=== PATIENT | female | born 1955 | race Caucasian/White ===

== ENCOUNTER → 2017-09-21 13:14 | Outpatient (CLI) | payer BC, SELFPAY ==
--- NOTE | 2017-09-21 13:17 | EKG12_ITS ---
Test Reason : PREOP Blood Pressure : / mmHG Vent. Rate : 059 BPM Atrial Rate : 059 BPM P-R Int : 138 ms QRS Dur : 080 ms QT Int : 444 ms P-R-T Axes : 071 023 037 degrees QTc Int : 439 ms Sinus bradycardia with sinus arrhythmia Otherwise normal ECG Low voltage QRS (limb leads) Confirmed by CARINE IYER, MAGGIE ([id number]), editor farm journal ELI PERKINS ([id number]) on 09/24/2017 2:47:01 PM Referred By: GREGORIO Confirmed By:MAGGIE HAWK MD
== END ==
PROVIDERS: Family Provider Family Medicine; PCP Family Medicine; Visit Provider Orthopaedic Surgery
DX: Z01.810 Encounter for preprocedural cardiovascular examination (principal)
CPT/HCPCS: 93005

== ENCOUNTER → 2018-06-21 09:40 | Outpatient (CLI) | payer OTHER, BC, SELFPAY ==
--- NOTE | 2018-06-21 09:57 | EKG12_ITS ---
Test Reason : PRE OP Blood Pressure : / mmHG Vent. Rate : 064 BPM Atrial Rate : 064 BPM P-R Int : 138 ms QRS Dur : 088 ms QT Int : 418 ms P-R-T Axes : 079 033 067 degrees QTc Int : 431 ms Normal sinus rhythm Right atrial enlargement Borderline ECG Confirmed by JOLENE IYER, MILLA ([id number]), photographic editor DM ROWE ([id number]) on 06/24/2018 9:32:04 AM Referred By: Rasheed Benjamin Confirmed By:MILLA FERNÁNDEZ MD
[2018-06-21 10:43] LABS: Hematocrit 41.9 % (37-47); Hemoglobin 13.9 g/dl (12.0-15.0); Mean Corp Hgb Conc 33.2 g/gl (32-36); Mean Corpuscular Hgb 29.6 pg (27.0-32.0); Mean Corpuscular Volume 89.1 fL (81-99); Platelet Count 207 K/mm3 (150-450); RBC Distribution Width CV 13.8 % (11.6-14.6); RBC Distribution Width SD 44.7 fl (35.1-43.9); Scan Indicated on CBC? Y/N NO
[2018-06-21 11:18] LABS: BUN 25 mg/dL (7-18); Creatinine, Serum 0.86 mg/dL (0.55-1.02); EST Glomerular Filtration Rate 71 mL/min (>60); Glucose 83 mg/dL (74-106)
[2018-06-21 11:19] LABS: Anion Gap 6 (5-15); BUN/Creat Ratio 29.2 RATIO (10-20); Calcium,Total 8.5 mg/dL (8.5-10.1); Chloride 110 mmol/L (98-107); Est Glom Filt Rate - Afr Amer 86 mL/min (>60); Potassium 4.2 mmol/L (3.5-5.1); Sodium Level 142 mmol/L (136-145)
--- OUTSIDE RECORDS SUMMARY | 2018-08-25 17:14 | XMS RPT_ITS ---
:1955 Author Organization OHIP Care Team Providers Name Role Phone Rasheed Benjamin Attending Unavailable Rasheed Benjamin Referring Unavailable COLEEN CAO Primary Care Unavailable Shade Perkins Attending Unavailable COLEEN CAO Primary Care Unavailable Ryan Hawk Attending Unavailable Shade Perkins Referring Unavailable PROBLEMS PROBLEMS DATE TYPE CONDITION / CODE ATTENDING STATUS SOURCE 06/21/2018 Unknown Z01.818 - Encounter Rasheed Benjamin for other [facility] preprocedural Hospital examination / Repository Z01.818(ICD-10) 06/21/2018 Unknown Z01.810 - Encounter Rasheed Benjamin for preprocedural [facility] cardiovascular Hospital examination / Repository Z01.810(ICD-10) 10/24/2017 Unknown R00.1 - Bradycardia, Ryan Hawk unspecified / Community R00.1(ICD-10) Hospital Repository PROCEDURES PROCEDURES No Procedure Records FoundRESULTS RESULTS 12 LEAD ELECTROCARDIOGRAM Observed: 06/24/2018 Status: F Source: [place] 9:32 AM [facility] H[facility]PITAL REPOSITORY [facility] Cardiovascular Services [address] [place] [address] 12 Lead EKG 06/21/18 1004 MR#: [id number] Acct: [id number] Name: PALMA DELGADO Rep #: [id number] : 1955 63 From: Beny Cruz MD Attending Dr: Rasheed Turner Status: REG CLI Ordering Dr: Rasheed Benjamin PA-C Date: 06/21/18 Location: LAB Sex: F C Admitted: Test Reason : PRE OP Blood Pressure : / mmHG Vent. Rate : 064 BPM Atrial Rate : 064 BPM P-R Int : 138 ms QRS Dur : 088 ms QT Int : 418 ms P-R-T Axes : 079 033 067 degrees QTc Int : 431 ms Normal sinus rhythm Right atrial enlargement Borderline ECG Confirmed by JOLENE IYER, BENY ([id number]), magazine editor DM ROWE ([id number]) on 06/24/2018 9:32:04 AM Referred By: Rasheed Benjamin Confirmed By:BENY CRUZ MD 06/24/18 0932 Date Beny Cruz MD CC: Coleen Cao MD; Rasheed ORTEGA Signed CBC-COMPLETE BLOOD CNT Collected: 06/21/2018 Status: F Source: [place] NO DIFF 9:47 AM [facility] REPOSITORY TYPE CODE TESTS RESULT OUT OF RANGE REFERENCE UNITS LAB L100.1000 4.4-11.0 K/mm3 Normal WBC 6.0 LAB L100.1200 4.2-5.4 M/mm3 Normal RBC 4.70 LAB L100.1300 12.0-15.0 g/dl Normal HGB 13.9 LAB L100.1400 37-47 % Normal HCT 41.9 LAB L100.1500 81-99 fL Normal MCV 89.1 LAB L100.1600 27.0-32.0 pg Normal MCH 29.6 LAB L100.1700 32-36 g/gl Normal MCHC 33.2 LAB L100.1810 11.6-14.6 % Normal RDW CV 13.8 LAB L100.1820 35.1-43.9 fl High RDW SD 44.7 LAB L100.1900 150-450 K/mm3 Normal PLT 207 LAB L100.2000 6.2-12.0 fl Normal MPV 11.0 Performed By: #### L100.0500 #### [facility] [address] [place], [address] BASIC METABOLIC Collected: 06/21/2018 Status: F Source: [place] PROFILE (BMP) 9:47 AM [facility] REPOSITORY TYPE CODE TESTS RESULT OUT OF RANGE REFERENCE UNITS LAB L501.0100 74-106 mg/dL Normal GLU 83 Result Comment: Please note revised GLUCOSE reference range effective 2017. LAB L501.1000 7-18 mg/dL High BUN 25 LAB L501.1100 0.55-1.02 mg/dL Normal CREAT,SERUM 0.86 Result Comment: The validity of the calculated GFR AND GFRAA in patients over 70 years has not been determined. Clinical correlation is essential. LAB L501.1110 >60 mL/min Normal EST GFR 71 Result Comment: Non- GFR Calc LAB L501.1115 >60 mL/min Normal EST GFR - AA 86 Result Comment: GFR Calc LAB L501.1300 10-20 RATIO High BUN/CRE 29.2 LAB L501.2200 8.5-10.1 mg/dL CA Normal 8.5 LAB L501.5300 136-145 mmol/L NA Normal 142 LAB L501.5600 3.5-5.1 mmol/L K Normal 4.2 LAB L501.5900 98-107 mmol/L High CL 110 LAB L501.6100 21.0-32.0 mmol/L Normal CO2 26.0 LAB L501.6200 5-15 Normal GAP 6 Performed By: #### L500.2500 #### [facility] [address] [place], [address] 12 LEAD ELECTROCARDIOGRAM Observed: 09/24/2017 Status: F Source: [place] 2:47 PM [facility] REPOSITORY [facility] Cardiovascular Services [address] [place] [address] 12 Lead EKG 09/21/17 1321 MR#: [id number] Acct: [id number] Name: PALMA DELGADO Rep #: [id number] : 1955 62 From: Ryan Hawk MD Attending Dr: Shade Perkins MD Status: REG CLI Ordering Dr: Shade Perkins MD Date: 09/21/17 Location: [facility] Sex: F C Admitted: Test Reason : PREOP Blood Pressure : / mmHG Vent. Rate : 059 BPM Atrial Rate : 059 BPM P-R Int : 138 ms QRS Dur : 080 ms QT Int : 444 ms P-R-T Axes : 071 023 037 degrees QTc Int : 439 ms Sinus bradycardia with sinus arrhythmia Otherwise normal ECG Low voltage QRS (limb leads) Confirmed by CARINE IYER, RYAN ([id number]), magazine editor ELI PERKINS ([id number]) on 09/24/2017 2:47:01 PM Referred By: GREGORIO Confirmed By:RYAN HAWK MD 09/24/17 1447 Date Ryan Hawk MD CC: Coleen Cao MD; Shade Perkins MD Signed ALLERGIES ALLERGIES DATE TYPE / CODE NAME / CODE REACTION SEVERITY SOURCE 09/29/2015 Drug No Known Unknown [place] [facility] Allergy/4160 Allergies/F00 [facility] [address]25(SNOMED 7842765(RXNOR Repository CT) M) ENCOUNTERS ENCOUNTERS ADMIT/DISCHARGE ACCOUNT ADMITTING ENCOUNTER LOCATION SOURCE NUMBER CLASS 06/21/2018 [id number] Ambulatory [place] [facility] 3 [facility] ing:LAB Repository 09/21/2017 [id number] Amb[place] [facility] ing:[facility] Repository 09/21/2017 [id number] Ambulatory BMSBuilding:W [place] 8 [facility] Repository PAYERS PAYERS ENCOUNTER GUARANTOR PAYER SUBSCRIBER SOURCE 06/21/2018 PALMA Lance Primary PALMA DELGADO98 Insurance:SELF INS CRAWFORDDOB: Community RUSTIC LNAPPLE [facility] [employer]Policy [id number] Number: Repository [address]Dgz: [phone] [id number] [phone] (HP) Date:[id number] MANAGEMENT [place] [address], [place] [address]GW: 06/21/2018 Secondary PALMA Lance [place] Insurance:ANTHEMPolic CRAWFORDDOB: Community y Number: [id number]. [id number] Repository ve Date:[id number] [address], [place] [address]ZP: 06/21/2018 Tertiary NOT GIVENUNK [place] Insurance:SELF PAY [facility] Number: Effective Repository Date:2018-06-21 09/21/2017 PALMA Lance Primary PALMA Lance [place] [id number] Insurance:ANTHEMPolic CRAWFORDDOB: Community RUSTIC LNAPPLE y [place]: [id number] [id number] Repository [address]Dkc: ve Date:[id number] [phone] () [address]XL: 09/21/2017 Secondary NOT GIVENUNK [place] Insurance:SELF PAY [facility] Number: Effective Repository Date:2017-09-21 09/21/2017 PALMA Lance Primary PALMA Lance [place] [id number] Insurance:ANTHEMPolic CRAWFORDDOB: Community RUSTIC LNAPPLE y Number: [id number] [id number] Repository [address]Mzk: ve Date:3523-89-05NW [phone] [address], [place] 5 () [address]XD: 09/21/2017 Secondary NOT GIVENUNK [place] Insurance:SELF PAY [facility] Number: Effective Repository Date:2017-09-21
== END ==
PROVIDERS: Family Provider Family Medicine; PCP Family Medicine; Referring Provider Physician Assistant; Visit Provider Physician Assistant
DX: Z01.818 Encounter for other preprocedural examination (principal); Z01.810 Encounter for preprocedural cardiovascular examination
CPT/HCPCS: 36415; 80048; 85027; 93005

== ENCOUNTER 2025-03-02 19:36 | Emergency (ER) | payer MEDICARE, SELFPAY ==
--- OUTSIDE RECORDS SUMMARY | 2025-01-20 07:05 | XMS RPT_ITS ---
Author Name Auto Generated Organization [facility] Care Team Providers Care Payroll Technician Name Role Phone SLOANE BIOMETRIC SCREENER-REACH LIFT TRUCK DRIVER, ЕЛЕНА A Attending Un available SLOANE BIOMETRIC SCREENER-REACH LIFT TRUCK DRIVER, ЕЛЕНА A Primary Care Un available SLOANE BIOMETRIC SCREENER-REACH LIFT TRUCK DRIVER, ЕЛЕНА A Attending Un available SLOANE BIOMETRIC SCREENER-REACH LIFT TRUCK DRIVER, ЕЛЕНА A Primary Care Un available SLOANE BIOMETRIC SCREENER-REACH LIFT TRUCK DRIVER, ЕЛЕНА A Attending Un available SLOANE BIOMETRIC SCREENER-REACH LIFT TRUCK DRIVER, ЕЛЕНА A Primary Care Un available SLOANE BIOMETRIC SCREENER-REACH LIFT TRUCK DRIVER, ЕЛЕНА A Attending Un available SLOANE BIOMETRIC SCREENER-REACH LIFT TRUCK DRIVER, ЕЛЕНА A Primary Care Un available SLOANE BIOMETRIC SCREENER-REACH LIFT TRUCK DRIVER, ЕЛЕНА A Attending Un available SLOANE BIOMETRIC SCREENER-REACH LIFT TRUCK DRIVER, ЕЛЕНА A Primary Care Un available PROBLEMS No Problem Records Found PROCEDURES No Procedure Records Found RESULTS CBC Collected: 5 7:12 AM Status: F Source: [facility] TYPE CODE TESTS RESULT OUT OF RANGE REFERENCE UNITS LAB WBC(LOINC) WBC 4.5 4.5-10.8 10 3/mcL LAB RBCCT(LOINC) RBC 4.56 4.10-5.30 10 6/mcL LAB HGB(LOINC) Hgb 13.5 12.0-16.0 G/dL LAB HCT(LOINC) Hct 40.0 34.0-46.0 % LAB MCV(LOINC) MCV 87.7 80.0-99.0 fL LAB MCH(LOINC) MCH 29.5 27.0-33.0 pg LAB MCHC(LOINC) MCHC 33.7 32.0-36.0 G/dL LAB RDW(LOINC) RDW 13.8 11.5-15.5 % LAB PLT(LOINC) Platelet 172 150-450 10 3/mcL LAB MPV(LOINC) MPV 9.2 6.6-10.5 fL Performed By: #### TSH, GFR, LIPID, ADIFF, FT4, CBC, CMP, ANEU #### [address] [address] .AUTO DIFF Collected: 01/20/2025 7:12 AM Status: F Source: [facility] TYPE CODE TESTS RESULT OUT OF RANGE REFERENCE UNITS LAB CHRIST(LOINC) Neutrophil % 59.3 50.0-75.0 % LAB LYM(LOINC) Lymphocyte % 31.4 20.0-40.0 % LAB MON(LOINC) Monocyte % 6.3 2.0-13.0 % LAB EO(LOINC) Eosinophil % 2.4 0.0-6.0 % LAB BAS(LOINC) Basophil % 0.6 0.0-2.5 % LAB ABLYM(LOINC) Lymphocyte, Absolute 1.4 0.9-4.3 10 3/mcL LAB FIDEL(LOINC) Monocyte, Absolute 0.3 0.1-1.4 10 3/mcL LAB AEOS(LOINC) Eosinophil, Absolute 0.1 0.0-0.7 10 3/mcL LAB ABAS(LOINC) Basophil, Absolute 0.0 0.0-0.3 10 3/mcL Performed By: #### TSH, GFR, LIPID, ADIFF, FT4, CBC, CMP, ANEU #### [address] [address] .NEUABS Collected: 7:12 AM Status: F Source: [facility] TYPE CODE TESTS RESULT OUT OF RANGE REFERENCE UNITS LAB ANEU(LOINC) Neutrophil, Absolute 2.7 2.3-8.1 10 3/mcL Performed By: #### TSH, GFR, LIPID, ADIFF, FT4, CBC, CMP, ANEU #### [address] [address] TSH Collected: 7:12 AM Status: F Source: [facility] TESTS RESULT OUT OF RANGE REFERENCE UNITS LAB TSH(LOINC) TSH 0.07 Low 0.36-3.74 mcIU/mL Performed By: #### TSH, GFR, LIPID, ADIFF, FT4, CBC, CMP, ANEU #### [address] [address] FT4 Collected: 7:12 AM Status: F Source: [facility] TYPE CODE TESTS RESULT OUT OF RANGE REFERENCE UNITS LAB FT4(LOINC) Free T4 0.93 0.76-1.46 ng/dL Performed By: #### TSH, GFR, LIPID, ADIFF, FT4, CBC, CMP, ANEU #### [address] [address] CMP Collected: 01/20/2025 7:12 AM Status: F Source: [facility] TYPE CODE TESTS RESULT OUT OF RANGE REFERENCE UNITS LAB GLU(LOINC) Glucose Level 98 80-115 mg/dL LAB NA(LOINC) Sodium Level 140 136-145 mmol/L LAB K(LOINC) Potassium Level 4.1 3.5-5.1 mmol/L LAB CL(LOINC) Chloride 107 98-107 mmol/L LAB CO2(LOINC) CO2 28 23-31 mmol/L LAB EBAL(LOINC) Electrolyte Balance 5.0 4.0-15.0 mEq/L LAB BUN(LOINC) BUN 21 High 7-18 mg/dL LAB CRE(LOINC) Creatinine Lvl (s) 0.92 0.51-0.95 mg/dL LAB BC(LOINC) BUN/Creatinine Ratio 23 7-27 ratio LAB CA(LOINC) Calcium Lvl 9.0 8.4-10.2 mg/dL LAB PROT(LOINC) Total Protein 6.5 6.4-8.2 G/dL LAB ALB(LOINC) Albumin Level 3.4 3.4-4.8 G/dL LAB GLB(LOINC) Globulin 3.1 2.7-4.4 G/dL LAB AG(LOINC) A/G Ratio 1.1 1.1-2.5 ratio LAB BILT(LOINC) Bili Total 0.4 0.2-1.0 mg/dL Result Comment: Use of this assay is not recommended for patients undergoing treatment with eltrombopag due to the potential for falsely elevated results. LAB AP(LOINC) Alk Phos 69 40-135 U/L LAB AST(LOINC) AST/SGOT 19 10-40 U/L LAB ALT(LOINC) ALT/SGPT 19 14-59 U/L Performed By: #### TSH, GFR, LIPID, ADIFF, FT4, CBC, CMP, ANEU #### [address] [address] .GFR Collected: 01/20/2025 7:12 AM Status: F Source: [facility] TYPE CODE TESTS RESULT OUT OF RANGE REFERENCE UNITS LAB eGFR(LOINC) Estimated Glomerular Filtration Rate 67 ml/min/1. 73sqm Result Comment: Stages of Chronic Kidney Disease (CKD) Stage Description eGFR(ml/min/1.73 sq.m.) CKD 1 Normal kidney function or >=90 normal kindney function with possible kidney damage (ex. Proteinuria) CKD 2 Kidney damage with mild loss 60-89 of kidney function CKD 3a Mild to moderate loss of kidney 45-59 function CKD 3b Moderate to severe loss of 30-44 of kindey function CKD 4 Severe loss of kidney function 15-29 CKD 5 Kidney failure <15 Note: (go live 2024) the eGFR calculation was updated to the 2020 CKD-EPI creatinine equation without a race factor to calculate the eGFR results. Performed By: #### TSH, GFR, LIPID, ADIFF, FT4, CBC, CMP, ANEU #### [facility] [place] [address] [place], [place] [address] LIPID Collected: 01/20/2025 7:12 AM Status: F Source: [facility] TYPE CODE TESTS RESULT OUT OF RANGE REFERENCE UNITS LAB CHOL(LOINC) Cholesterol 226 High 0-200 mg/dL Result Comment: Cholesterol Reference Interval: Less than 200 Desirable 200-239 Borderline high risk 240 and above High risk LAB TRIG(LOINC) Triglycerides 53 0-150 mg/dL Result Comment: Triglyceride Reference Interval: Less than 150 Normal 150-199 Borderline high risk 200-499 High risk 500 or higher Very high risk LAB HD(LOINC) HDL Cholesterol 71 High 40-60 mg/dL LAB LDL(LOINC) LDL Cholesterol 144 High 0-130 mg/dL Performed By: #### TSH, GFR, LIPID, ADIFF, FT4, CBC, CMP, ANEU #### [address] [address] TSH Collected: 7:32 AM Status: F Source: [facility] TESTS RESULT OUT OF RANGE REFERENCE UNITS LAB TSH(LOINC) TSH 0.18 Low 0.36-3.74 mcIU/mL Performed By: #### FT4, TSH #### [address] [address] FT4 Collected: 7:32 AM Status: F Source: [facility] TESTS RESULT OUT OF RANGE REFERENCE UNITS LAB FT4(LOINC) Free T4 0.81 0.76-1.46 ng/dL Performed By: #### FT4, TSH #### [address] [address] TSH Collected: 10:43 AM Status: F Source: [facility] TESTS RESULT OUT OF RANGE REFERENCE UNITS LAB TSH(LOINC) TSH 0.29 Low 0.36-3.74 mcIU/mL Performed By: #### TSH, FT4 #### [address] [address] FT4 Collected: 10:43 AM Status: F Source: [facility] TYPE CODE TESTS RESULT OUT OF RANGE REFERENCE UNITS LAB FT4(LOINC) Free T4 0.81 0.76-1.46 ng/dL Performed By: #### TSH, FT4 #### [address] [address] CBC Collected: 2:06 PM Status: F Source: [facility] TYPE CODE TESTS RESULT OUT OF RANGE REFERENCE UNITS LAB WBC(LOINC) WBC 5.4 4.5-10.8 10 3/mcL LAB RBCCT(LOINC) RBC 4.65 4.10-5.30 10 6/mcL LAB HGB(LOINC) Hgb 13.7 12.0-16.0 G/dL LAB HCT(LOINC) Hct 41.3 34.0-46.0 % LAB MCV(LOINC) MCV 88.7 80.0-99.0 fL LAB MCH(LOINC) MCH 29.5 27.0-33.0 pg LAB MCHC(LOINC) MCHC 33.2 32.0-36.0 G/dL LAB RDW(LOINC) RDW 14.0 11.5-15.5 % LAB PLT(LOINC) Platelet 189 150-450 10 3/mcL LAB MPV(LOINC) MPV 9.0 6.6-10.5 fL Performed By: #### ANEU, EDNA FF, CBC, CMP, LIPID, GFR #### [address] [address] .AUTO DIFF Collected: 03/25/2024 2:06 PM Status: F Source: [facility] TYPE CODE TESTS RESULT OUT OF RANGE REFERENCE UNITS LAB CHRIST(LOINC) Neutrophil % 63.7 50.0-75.0 % LAB LYM(LOINC) Lymphocyte % 29.4 20.0-40.0 % LAB MON(LOINC) Monocyte % 5.2 2.0-13.0 % LAB EO(LOINC) Eosinophil % 1.3 0.0-7.0 % LAB BAS(LOINC) Basophil % 0.4 0.0-2.5 % LAB ABLYM(LOINC) Lymphocyte, Absolute 1.6 0.9-4.3 10 3/mcL LAB FIDEL(LOINC) Monocyte, Absolute 0.3 0.1-1.4 10 3/mcL LAB AEOS(LOINC) Eosinophil, Absolute 0.1 0.0-0.7 10 3/mcL LAB ABAS(LOINC) Basophil, Absolute 0.0 0.0-0.2 10 3/mcL Performed By: #### ANEU, EDNA FF, CBC, CMP, LIPID, GFR #### [place] [id number] [place], [place] [address] .NEUABS Collected: 2:06 PM Status: F Source: [facility] TYPE CODE TESTS RESULT OUT OF RANGE REFERENCE UNITS LAB ANEU(LOINC) Neutrophil, Absolute 3.4 2.3-8.1 10 3/mcL Performed By: #### ANEU, EDNA FF, CBC, CMP, LIPID, GFR #### [place] [id number] [place], [place] [address] CMP Collected: 03/25/2024 2:06 PM Status: F Source: [facility] TYPE CODE TESTS RESULT OUT OF RANGE REFERENCE UNITS LAB GLU(LOINC) Glucose Level 86 80-115 mg/dL LAB NA(LOINC) Sodium Level 144 136-145 mmol/L LAB K(LOINC) Potassium Level 4.6 3.5-5.1 mmol/L LAB CL(LOINC) Chloride 107 98-107 mmol/L LAB CO2(LOINC) CO2 29 23-31 mmol/L LAB EBAL(LOINC) Electrolyte Balance 8.0 4.0-15.0 mEq/L LAB BUN(LOINC) BUN 20 High 7-18 mg/dL LAB CRE(LOINC) Creatinine Lvl (s) 0.98 0.55-1.02 mg/dL Result Comment: Testing perf ormed on Siemens Dimension EXL analyzer using a modified kinetic Ivon technique. LAB BC(LOINC) BUN/Creatinine Ratio 20 7-27 ratio LAB CA(LOINC) Calcium Lvl 8.9 8.4-10.2 mg/dL LAB PROT(LOINC) Total Protein 6.2 Low 6.4-8.2 G/dL LAB ALB(LOINC) Albumin Level 3.7 3.4-4.8 G/dL LAB GLB(LOINC) Globulin 2.5 G/dL LAB AG(LOINC) A/G Ratio 1.5 1.1-2.5 ratio LAB BILT(LOINC) Bili Total 0.3 0.2-1.0 mg/dL Result Comment: Use of this assay is not recommended for patients undergoing treatment with eltrombopag due to the potential for falsely elevated results. LAB AP(LOINC) Alk Phos 70 40-135 U/L LAB AST(LOINC) AST/SGOT 18 10-40 U/L LAB ALT(LOINC) ALT/SGPT 24 14-59 U/L Performed By: #### ANEU, EDNA FF, CBC, CMP, LIPID, GFR #### [address] [address] .GFR Collected: 4 2:06 PM Status: F Source: [facility] TYPE CODE TESTS RESULT OUT OF RANGE REFERENCE UNITS LAB GFRAA(LOINC) GFR 68 ml/min/1. 73sqm Result Comment: GFR Population mean for , Non- Americans Ages 20-29 = 116 mL/min/1.73 sq.m. Ages 30-39 = 107 mL/min/1.73 sq.m. Ages 40-49 = 99 mL/min/1.73 sq.m. Ages 50-59 = 93 mL/min/1.73 sq.m. Ages 60-69 = 85 mL/min/1.73 sq.m. Ages 70+ = 75 mL/min/1.73 sq.m. Chronic Kidney Disease: Less than 60 mL/min/1.73 square meters End Stage Renal Disease: Less than 15 mL/min/1.73 square meters LAB GFRNO(LOINC) GFR Non- 56 ml/min/1. 73sqm Result Comment: GFR Population mean for , Non- Americans Ages 20-29 = 116 mL/min/1.73 sq.m. Ages 30-39 = 107 mL/min/1.73 sq.m. Ages 40-49 = 99 mL/min/1.73 sq.m. Ages 50-59 = 93 mL/min/1.73 sq.m. Ages 60-69 = 85 mL/min/1.73 sq.m. Ages 70+ = 75 mL/min/1.73 sq.m. Chronic Kidney Disease: Less than 60 mL/min/1.73 square meters End Stage Renal Disease: Less than 15 mL/min/1.73 square meters Performed By: #### ANEU, ENDA FF, CBC, CMP, LIPID, GFR #### [address] [address] LIPID Collected: 03/25/2024 2:06 PM Status: F Source: [facility] TYPE CODE TESTS RESULT OUT OF RANGE REFERENCE UNITS LAB CHOL(LOINC) Cholesterol 266 High 0-200 mg/dL Result Comment: Cholesterol Reference Interval: Less than 200 Desirable 200-239 Borderline high risk 240 and above High risk LAB TRIG(LOINC) Triglycerides 94 0-150 mg/dL Result Comment: Triglyceride Reference Interval: Less than 150 Normal 150-199 Borderline high risk 200-499 High risk 500 or higher Very high risk LAB HD(LOINC) HDL Cholesterol 67 High 40-60 mg/dL LAB LDL(LOINC) LDL Cholesterol 180 High 0-130 mg/dL Performed By: #### ANEU, EDNA FF, CBC, CMP, LIPID, GFR #### [address] [address] [place] MAMMOGRAM SCREENING BILATERAL W/RAFA Observed: 03/13/2024 7:30 AM Status: F Source: [facility] ORIGINAL FROM: [place] [address] PROCEDURE FOR: PALMA DELGADO [address] [place] [id number] Home: PID#: [id number] Exam#: [id number] : 1955 Age: 69 TO: ЕЛЕНА ANTON APRN [place] [address] Fax: NO FAX EXAMINATION: SCREENING DIGITAL BILATERAL MAMMOGRAM WITH TOMOSYNTHESIS, 03/13/2024 7:14 am TECHNIQUE: Screening mammography of the bilateral breasts was performed with tomosynthesis. 2D standard and 3D tomosynthesis combination imaging performed through both breasts in the MLO and CC projection. Computer aided detection was utilized in the interpretation of this exam. COMPARISON: 03/12/2023, 03/14/2022 HISTORY: Breast cancer screening. FINDINGS: BREAST DENSITY: There are scattered areas of fibroglandular density. There are benign appearing calcifications in both breasts. There are benign appearing scattered densities in both breasts. There are no significant masses or calcifications. IMPRESSION: No mammographic evidence of malignancy. Continued screening with annual mammograms is recommended. [facility] risk calculations, generated with the history provided, report this patient's 10 year risk and lifetime risk for developing breast cancer at 2.6% and 4.7%, respectively. Based on this assessment tool, if the patient's calculated lifetime risk is below 20%, then the patient is considered at average risk for developing breast cancer. If the patient's calculated lifetime risk is at or above 20%, then the patient is considered high risk for developing breast cancer and may be a candidate for supplemental breast MRI screening in addition to annual mammographic screening per the [place] [employer]. BIRADS: BI-RADS: 2: Benign RECALL: 1 year screening RECALL TYPE: mammo LETTER SENT: Normal BI-RADS 1 and 2 Interpreted by: Jake Sen MD Preliminary Report By: Jake Sen MD Electronically signed By Jake Sen MD Dictated Date: 03/13/2024 8:43:12 AM Prelim Date: 03/13/2024 8:45:44 AM Sign Date: 03/13/2024 8:45:44 AM Ordering Provider: ЕЛЕНА ANTON Jewelry Sales Associate: PRO WADSWORTH RT(R)(M)(CT) SMALL KICK PRESS OPERATOR letter sent: Normal BI-RADS 1 and 2 Mammogram BI-RADS: 2 Benign ALLERGIES No Allergies Records Found ENCOUNTERS ADMIT/DISCHARGE ACCOUNT NUMBER ADMITTING ENCOUNTER CLASS LOC ATION SOURCE [facility]/20[facility]2025/ [id number] [facility]/21/2024/ 5 [id number] [facility] MAIN[facility]: [facility] 10/06/2024/ 5 [id number] [facility] MAINBuilding: [facility] 03/25/2024/ 4 [id number] [facility] [place] 03/13/2024/ [id number] Ambulatory [place] MAINBuilding: [facility] PAYERS ENCOUNTER GUARANTOR PAYER SUBSCRIBER SOURCE 01/20/2025 PALMA Lance NATALIA: [place] [address]~weeks [email or web address] (HP) Primary Insurance:AETNA INSCOPolicy Number: [id number] e Date:2817-22-24Tzpq Name:NPO [place] [id number] [id number]: PALMA Lance TAIB: [id number] [place] [address]Zbb: (HP) (WP) [facility] 11/21/2024 PALMA K TAIB: [place] [address]~weeks [email or web address] (HP) Primary Insurance:AETNA INSCOPolicy Number: [id number] e Date:3251-28-27Ssbg Name:NPO Yasemin [id number] [address]WA: PALMA Lance TAIB: [id number] [place] [address]Tla: (HP) (WP) [facility] 10/06/2024 PALMA FISHER: [place] [address]~weeks [email or web address] (HP) Primary Insurance:AETNA INSCOPolicy Number: [id number] e Date:2478-71-57Uewx Name:[place] [id number]: PALMA Lance NATALIA: [id number] [place] [address]Vlp: (HP) (WP) [facility] 03/25/2024 PALMA Lance NATALIA: [facility] [address]~[email or web address] (HP) Primary Insurance:AETNA INSCOPolicy Number: [id number] e Date:5083-40-22Ardn Name:[place] [address]GK: PALMA Lance NATALIA: [id number] [place] [address]Sdo: (HP) (WP) [facility] 03/13/2024 PALMA Lance NATALIA: [place] [address]~weeksbu [email or web address] (HP) Primary Insurance:AETNA INSCOPolicy Number: [id number] e Date:5979-47-92Lrtz Name:[place] [address]AU: PALMA Lance NATALIA: [id number] [place] [address]Gcf: (HP) (WP) [facility]
[2025-03-02 19:36] VITALS: BP 170/74; PULSE 63; RESP 16; TEMP 36.6; O2SAT 99; BMI 33.2
--- NOTE | 2025-03-02 20:36 | EDS_ITS ---
HPI History of Present Illness Chief Complaint: Laceration Narrative Narrative: Patient is a 70-year-old female presenting to the emergency department for a laceration to her right fifth digit. She states that her dogs' lead got stuck around her finger when it was running and caused a laceration to her right fifth digit. She denies any other injuries. She states her last tetanus shot was about 7 to 8 years ago. PFSH PFS Home Medications Medication Instructions Recorded Last Taken Type doxycycline hyclate 100 mg capsule 100 mg PO BID PRN P RN TEETH 12/22/14 Unknown History levothyroxine 25 mcg tablet 25 mcg PO DAILY 12/22/14 0 10/05/15 06:00 History dbiqziac-ppf-ofzwj acid 0.4 1 ea PO DAILY 12/22/14 Unk nown History mg-lycopene 300 mcg-lutein 250 mcg tablet (Centrum Silver) simvastatin 20 mg tablet 20 mg PO QHS 12/22/14 Unknow n History naproxen 500 mg tablet 500 mg PO BID PRN #20 tabs 0 07/19/16 Unknown Rx Allergy/AdvReac Type Severity Reaction Status Date / Time No Known Allergies Allergy Verified 03/02/25 19:39 Social History Smoking Status: Former smoker ROS ROS ED ROS Narrative see HPI EXAM Physical Exam Narrative Exam Narrative: Vital signs: Reviewed General: Alert and oriented x 3. No acute distress HEENT: Head is normocephalic and atraumatic, sinuses nontender, pupils equal round and reactive. Nares are patent. Oropharynx and throat exams normal. Neck: Supple without lymphadenopathy nontender Cardiovascular: Regular rate and rhythm, no murmurs. No rubs or gallops. Normal S1 and S2 Respiratory: Clear to auscultation bilaterally. No wheezes, rales, rhonchi Abdominal: Soft and nontender. Normal bowel sounds. No guarding or rebound. Nonsurgical abdomen Extremities: 3 cm laceration to the right ulnar side of the 5th digit. No active bleeding. No foreign body noted on wound exploration. No tendon or bony involvement. Flexion and extension at all joints intact. No tenderness to palpation of the finger or hand. Radial pulse intact. No bruising. Normal range of motion. Normal sensation. The rest of the physical exam is unremarkable Const Vital Signs: 03/02/25 19:36 Temperature 97.9 F Temperature Source Oral Pulse Rate 63 Respiratory Rate 16 Blood Pressure 170/74 H Blood Pressure Mean 106 Pulse Ox 99 MDM MDM MDM Narrative Medical decision making narrative: Patient is a 70-year-old female presenting to the emergency department for a right fifth digit injury. Patient was seen and examined. Vitals are stable. Patient resting bed comfortably no acute distress. Wound was irrigated copiously. 1% lidocaine without epi was injected for local anesthetic. Tetanus is up-to-date. X-ray was obtained to evaluate for any fracture or opaque foreign body. X-ray viewed myself, no fracture or di slocation noted. Radiology read with severe D IP degenerative changes. Tiny radiopaque density within the soft tissues which may represent a foreign body or less likely a fracture fragment. No other evidence of fracture. Soft tissue swelling. Patient reevaluated and wound irrigated again. On wound exploration, no foreign body noted. 3 4.0 Ethilon simple interrupted sutures placed. Patient tolerated well. Dressing placed on top. Patient was given wound care instructions. Instructed to return if she develops any redness, drainage or warmth around the site of the laceration. Patient instructed to have the sutures removed in 5 to 7 days. Patient discharged from the Emergency Department. I do not feel that the patient's evaluation reveals any acute reason for admission at this time. I instructed them to either follow-up with their primary care physician or promptly return to the Emergency Department for reevaluation should symptoms worsen or new symptoms develop. I explained what symptoms would indicate the need to return to the emergency department. Shared decision making was used. The patient voiced understanding of the treatment plan and is agreeable with it. Clinical impression Finger laceration History & Record Review Discussion w/independent historian: Patient Radiography X-Ray: Read by ED Physician and No Fracture Diagnostic Testing: Clinical Impression(s) from Imaging Studies Finger X-Ray 03/02/25 20:40 IMPRESSION: Osseous findings as above. Reading Location: [id number] Discharge Plan Triage Chief Complaint: Laceration ED Provider: Nisa Bowman Dx/Rx/DC Orders Clinical Impression: Finger laceration Instructions: ED Hand Laceration- All Closures Prescriptions: No Action doxycycline hyclate 100 MG capsule 100 mg PO BID PRN PRN (Reason: TEETH) levothyroxine 25 MCG tablet 25 mcg PO DAILY simvastatin 20 MG tablet 20 mg PO QHS rizejlnq-yju-LY-lycopen-lutein [Centrum Silver] 1 EACH tablet 1 ea PO DAILY naproxen 500 MG tablet 500 mg PO BID PRN Qty: 20 0RF Primary Care Provider: Sarah Samano NP Referrals: Marlon Cao MD [Non-Staff, Family Practice] - 5-7 Days Activity Restrictions/Additional Instructions: You need to have the sutures removed in 5 to 7 days. You need to see her primary care doctor or come back here to have them removed. Watch for signs of infection including drainage, warmth or redness. Keep the wound clean and dry. Your evaluation in the Emergency Department did not reveal any acute reason for admission. However, I want to emphasize that you may be early in the course of a disease process or illness even if it is not present. For this reason you should follow-up within 24 hours for reevaluation with either your primary care physician or if necessary back here in the Emergency Department. You should return to the Emergency Department immediately if your symptoms worsen or new symptoms develop. Print Language: Greenlandic Disposition Disposition: Home, Self Care Discharge Date/Time: 03/02/25 22:23
--- NOTE | 2025-03-02 20:40 | RAD_ITS ---
PROCEDURE: FINGER(S) MIN 2 VIEWS 03/02/2025 REASON FOR EXAM: INJURY TECHNIQUE: Procedure Code: RADFIN Modality: DX Procedure: FINGER(S) MIN 2 VIEWS Laterality: Right 5th digit FINDINGS: Severe D IP degenerative changes. Tiny radiopaque density within the soft tissues which may represent a foreign body or less likely a fracture fragment. No other evidence of fracture. Soft tissue swelling. RAD/Finger(s) Min 2 Views IMPRESSION: Osseous findings as above. Reading Location: [id number]
[2025-03-02] MEDS: Lidocaine 1% (20 ml mdv) 20 ML Vial 10 ML INFILT (22:40)
== END 2025-03-02 22:23 | disposition home or self-care (01) ==
PROVIDERS: Emergency Provider Student in an Organized Health Care Education/Training Program; PCP Registered Nurse; Visit Provider Student in an Organized Health Care Education/Training Program
DX: S61.216A Laceration without foreign body of right little finger without damage to nail, initial encounter (principal); Z87.891 Personal history of nicotine dependence; W26.8XXA Contact with other sharp object(s), not elsewhere classified, initial encounter; Y93.K1 Activity, walking an animal
CPT/HCPCS: 12002; 73140; 99282